=== PATIENT | male | born 1965 | race Native Hawaiian/Other Pacific Islander ===

== ENCOUNTER 2020-03-15 18:15 | Emergency (ER) | payer OTHER ==
[~2020-03-15] VITALS: Ht 157.5 cm; Wt 77.1 kg
[2020-03-15 18:48] LABS: PLATELET COUNT 183 K/uL (142-355)
[2020-03-15 18:52] LABS: POTASSIUM 3.7 mmol/L (3.6-5.2)
[2020-03-15 19:04] LABS: PARTIAL THROMBOPLASTIN TIME 25.2 SECONDS (24.5-33.6)
[2020-03-15 22:04] VITALS: BP 107/60; TEMP 98.6
== END 2020-03-15 22:04 | disposition short-term general hospital (02) ==
LOC: ED 18:15
PROVIDERS: Emergency Medicine Emergency Medical Services
DX: K92.2 Gastrointestinal hemorrhage, unspecified (principal); Z03.818 Encounter for observation for suspected exposure to other biological agents ruled out
CPT/HCPCS: 36415; 80053; 82140; 82272; 85027; 85610; 85730; 87635; 96360; 96361; 96375; 99284; J3490; U0003

== ENCOUNTER 2021-06-15 11:07 | Emergency (ER) | payer OTHER ==
[~2021-06-15] VITALS: Ht 157.5 cm; Wt 77.1 kg
[2021-06-15 11:17] VITALS: TEMP 99.1
[2021-06-15 11:40] LABS: PLATELET COUNT 178 K/uL (142-355)
[2021-06-15 11:50] LABS: POTASSIUM 3.9 mmol/L (3.6-5.2)
[2021-06-15 12:04] LABS: PARTIAL THROMBOPLASTIN TIME 26.1 SECONDS (24.5-33.6)
[2021-06-15 14:00] VITALS: BP 120/84
== END 2021-06-15 14:35 | disposition short-term general hospital (02) ==
LOC: ED 11:07
PROVIDERS: Emergency Medicine
DX: K74.69 Other cirrhosis of liver (principal); R18.8 Other ascites; I50.1 Left ventricular failure, unspecified; Z11.52 Encounter for screening for COVID-19
CPT/HCPCS: 80053; 80074; 80320; 82150; 82550; 83690; 83880; 84484; 85027; 85610; 85730; 87635; 93005; 99283; Q9963; U0003

== ENCOUNTER 2021-09-26 09:14 | Emergency (ER) | payer OTHER ==
[~2021-09-26] VITALS: Ht 157.5 cm; Wt 72.6 kg
[2021-09-26 09:15] VITALS: TEMP 97.8
[2021-09-26 10:04] LABS: PLATELET COUNT 208 K/uL (142-355)
[2021-09-26 10:15] LABS: POTASSIUM 3.9 mmol/L (3.6-5.2)
[2021-09-26 11:28] LABS: PARTIAL THROMBOPLASTIN TIME 33.9 SECONDS (24.5-33.6)
[2021-09-26 12:41] VITALS: BP 103/62
== END 2021-09-26 13:27 | disposition short-term general hospital (02) ==
LOC: ED 09:14
PROVIDERS: Emergency Medicine
DX: I21.4 Non-ST elevation (NSTEMI) myocardial infarction (principal); D64.89 Other specified anemias; K70.30 Alcoholic cirrhosis of liver without ascites; U07.1 COVID-19
CPT/HCPCS: 36415; 80053; 80320; 82550; 84484; 85027; 85610; 85730; 87635; 96365; 96366; 96375; 99285; J1644; J2270; J2405; U0003

== ENCOUNTER 2021-10-06 09:05 | Emergency (ER) | payer OTHER ==
[~2021-10-06] VITALS: Ht 157.5 cm; Wt 72.6 kg
[2021-10-06 09:15] VITALS: TEMP 98.8
[2021-10-06 10:46] LABS: PLATELET COUNT 179 K/uL (142-355)
[2021-10-06 10:50] LABS: POTASSIUM 3.8 mmol/L (3.6-5.2)
[2021-10-06 14:00] VITALS: BP 134/79
== END 2021-10-06 14:04 | disposition home or self-care (01) ==
LOC: ED 09:05
PROVIDERS: Family Medicine
DX: K70.11 Alcoholic hepatitis with ascites (principal); K56.7 Ileus, unspecified; U07.1 COVID-19
CPT/HCPCS: 80053; 83735; 84100; 85008; 85027; 87635; 99284; U0003

== ENCOUNTER 2022-07-27 19:54 | Emergency (ER) | payer OTHER | END 2022-07-27 20:10 | disposition left against medical advice (07) | LOC: ED 19:54 | DX: Z53.21 Procedure and treatment not carried out due to patient leaving prior to being seen by health care provider (principal) | CPT/HCPCS: 99281 ==